=== PATIENT | male | born 1975 | race Caucasian/White ===

== ENCOUNTER 2024-04-07 11:13 | Day surgery (SDC) | payer SELFPAY ==
[2024-04-07] VITALS (12 sets, daily range): BP systolic 132–155; BP diastolic 90–104; PULSE 65–106; RESP 16–18; TEMP 36.2–37.1; O2SAT 89–99; BMI 28.5
[2024-04-07] MEDS: Lactated Ringers 1,000 ML 15 ML IV (12:04)
--- NOTE | 2024-04-07 12:14 | PRE.ANES_ITS ---
ASA Classification* ASA Classification ASA Classification: 2 Assessment & Plan Anesthesia* Anesthesia Assessment Anesthesia Assessment: Discussed sedation and/or anesthesia options, risks, benefits, and alternatives with patient/parents/legal guardian/POA. Questions invited. The patient/parents/legal guardian/POA seems to understand and agrees to proceed with anesthesia plan. Reviewed the physical assessment, medical history, allergy history and patient home medications list prior to surgery/procedure/anesthetic and documented any changes. Performed airway and anesthesia risk assessments. 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 When Was Last Pacemaker Check QUESTION #4 FULL TEXT: You/Your Family Experience fever (hyperthermia) with Anesthesia Last Oral Intake Last Oral intake: Last Oral Intake NPO since 08:30 04/07/24 11:40 Meds taken in AM with sips of No 04/07/24 11:40 water? Meds patient instructed to take am of surgery PONV PONV - harp action assembler: PONV - harp action assembler Female No 03/31/24 11:33 HX of Motion Sickness Yes 03/31/24 11:33 HX of N/V After Surgery No 03/31/24 11:33 Non-Smoker No 03/31/24 11:33 Duration of Surgery greater Yes 03/31/24 11:33 than 60 minutes Number of Risk Factors 2 03/31/24 11:33 PONV Score Moderate Risk 03/31/24 11:33 Height & Weight Height & Weight: Anesthesia: Height & Weight Height 6 ft 04/07/24 11:40 Weight: 95.6 kg 04/07/24 11:40 Body Mass Index (BMI) 28.5 04/07/24 11:40 Respiratory Assessment Respiratory Assessment - harp action assembler: Respiratory Tract Infection Hx - harp action assembler Hx Respiratory Tract Infection No 03/31/24 11:33 STOP Sleep Apnea STOP Sleep Apnea - harp action assembler: STOP Sleep Apnea - harp action assembler Hx Hypertension No 03/31/24 11:33 Hx Sleep Apnea No 03/31/24 11:33 CPAP BIPAP Do you snore loudly (louder No 03/31/24 11:33 than talking or can be heard Do you often feel tired/ No 03/31/24 11:33 fatigued/ sleepy during daytime? Has anyone observed you stop No 03/31/24 11:33 breathing during sleep? STOP Results Negative 03/31/24 11:33 QUESTION #5 FULL TEXT : Do you snore loudly (louder than talking or can be heard through closed doors)? 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 Specify any problems Hx of Preganancy in last 3 N/A 03/31/24 11:33 Months Nurse Filling Out Transfusion DSCHRIBER 03/31/24 11:33 & Questions: Date: 03/31/24 03/31/24 11:33 Time: 11:34 03/31/24 11:33 Patient unable to answer at this time (ie. confused, unrespo /Reproduction History /Reproductive History - harp action assembler: /Reproductive Hx- harp action assembler Hx Now No 03/31/24 11:33 Gestational Age (in weeks): EDC: Hx Hx Para Hx Section SAB No 03/31/24 11:33 Active Medications Active Medications: Current Medications Generic Name Dose Route Start Last Admin Trade Name Freq PRN Reason Stop Dose Admin Cefazolin Sodium 2 gm/ N/A 20 mls @ 400 mls/hr 04/07/24 13:30 IV 04/07/24 13:32 PREOP ONE Lactated Ringer's 1,000 mls @ 15 mls/hr 04/07/24 11:30 04/07/24 12:04 IV 04/13/24 00:49 15 mls/hr .Q48H ELIANA Administration Protocol [facility] Medical History Wears glasses Wears dentures Arthritis Chewing tobacco use Hx of fracture of leg Home Medications ?Medication ?Instructions ?Recorded ?Last Taken ?Type NK 03/31/24 Unknown History Allergy/AdvReac Type Severity Reaction Status Date / Time No Known Allergies Allergy Verified 03/31/24 11:31 Social History Smoking Status: Current every day smoker tobacco type: smokeless tobacco Review of Systems (Anesthesia) ROS Narrative System reviewed and no additional complaints, except as documented.
[2024-04-07] MEDS: Epinephrine (1 mg/ml) 1 MG/ML VIAL (12:38)
[2024-04-07] MEDS: Cefazolin 2 GM in Syringe IV (12:53)
--- NOTE | 2024-04-07 14:31 | PCM.OPRPT ---
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 Fire Prevention Inspector: Renetta Etienne PA-C Tasks completed by environmental assistant: Opening & closing and Implanting device Additional boiler assistant operator?: No Type of Anesthesia: General/Regional RN Documented Start/Stop Times: Operation Date: 04/07/24 13:30 Case Time Into Pre-Op 04/07/24 11:27 Out of Pre-Op 04/07/24 12:52 Anesthesia Start 04/07/24 12:53 Into Room 04/07/24 12:53 Procedure Start 04/07/24 13:14 Procedure Start Time: 13:14 Procedure Stop Time: 14:27 Select all DRAINS/GRAFTS/IMPLANTS that apply: None (See dictated op report below) Estimated Blood Loss: 10 cc Fluids Replaced: Per anesthesia record Specimen collected: No Description of surgery: Implants: Arthrex self punching 4.75 mm bio composite swivel lock anchors x 2 Patient was identified in the preoperative holding area by name, medical record number, and date of . The operative extremity was marked. All questions were answered patient satisfaction. Interscalene block was administered by anesthesia staff. At time of his procedure, he was brought to the operative suite and positioned supine on a standard operating table. General anesthesia was induced and endotracheal tube placed. Patient was then positioned in the lateral decubitus position with the left side up. He was held in place with a beanbag. An axillary roll was placed. All bony prominences were well-padded. We spun the bed 45 degrees. We prepped and draped the left upper extremity in normal, sterile orthopedic fashion. We performed a timeout confirming the side, site, and operation be performed. No concerns were voiced and we elected to proceed with surgery. 2 g Ancef was administered IV prior to incision by anesthesia staff. Standard posterior portal was established 2 fingerbreadths inferior medial to the posterior lateral border of the scapular spine. Blunt tipped trocar was then used to enter the glenohumeral joint. Joint was filled with normal saline with epinephrine. Arthroscope was introduced. Diagnostic arthroscopy was commenced. Glenohumeral cartilage was pristine. Synovitis was noted in the rotator interval. Standard interval portal was established. Internal rotation revealed a split tear of the upper third of the subscapularis. This was debrided with the arthroscopic shaver. A fiber link suture was then placed along the inferior margin of the tear and then through the eyelet of a self punching swivel lock anchor. Swivel lock anchor was placed along the left medial aspect of the lesser tuberosity with excellent compression across the split interstitial tear. Sutures were cut flush with the anchor. The articular side of the supraspinatus was noted to be torn and debrided with the arthroscopic shaver. Biceps tendon was normal. Mild fraying at the superior labrum otherwise normal labrum. The arthroscope was then removed. I reentered the shoulder in the subacromial space. Extensive bursitis was noted. Standard lateral portal was established. Flexible cannula placed. Bursitis was debrided with the arthroscopic shaver. The undersurface of the acromion was skeletonized with cautery and appeared within normal limits. The supraspinatus was then debrided along the tear. A tear approximately 1 x 1 cm was noted. The footprint was debrided with cautery. I elected to proceed with single anchor repair. An inverted mattress fiber tape suture was placed with cysts scorpion suture passer. A fiber link suture was placed medial to this in the central portion for a modified Nadry-Chester type fixation. Sutures were passed through the eyelet of a self punching bio composite swivel lock anchor. [place] was placed along the lateral margin of the footprint. There is excellent purchase of the anchor as well as reapproximation of [place] tendon tissue to its footprint. There is a small dogear posteriorly which was reduced with the self locking mechanism of the swivel lock anchor. The supraspinatus was anatomically reduced following dogear fixation. Sutures were cut flush with the anchor. The subacromial space was thoroughly lavaged with saline. Arthroscopic instruments were removed. Portal sites were closed in interrupted [id number] fashion with 3-0 nylon suture. Bulky sterile compression dressing was applied. Patient tolerated the procedure well without apparent complication. He was extubated in the operative suite and awakened. He was transferred to his gurney and subsequently PACU in stable condition. Need for skilled boiler assistant operator: Renetta Etienne PA-C was critical to the outcome of the case. During the course of the procedure the physician boiler assistant operator played a vital role. Her intimate knowledge of my steps in the procedure aided in safe and expedient completion of the procedure. The PA played a vital role in positioning particularly in obtaining the appropriate positioning. The PA was also vital in the retraction of soft tissues during the exposure and protecting vital structures. The PA was also vital and obtaining tendon reduction and assisting with hardware placement. She also played a vital role in closure and sling application with my direct supervision. Surgical Findings: Full-thickness supraspinatus tear. Interstitial tear of subscapularis. Complications Complications: No Admit VTE Documentation VTE Present on Admission: No VTE Mechan Device Prophylaxis: SCD's VTE Pharm Prophylaxis ordered?: Yes
--- NOTE | 2024-04-07 14:41 | PCM.POST.ANE ---
Anesthesia: Postop Eval I Current Vital Signs Temperature: 98.8 F Pulse Rate: 90 Blood Pressure: 148/99 Respiratory Rate: 16 Pulse Ox: 98 Oxygen Delivery Method: Room Air Assessment Airway patent: Yes Spontaneous unlabored respirations: Yes Mental status: Awake and Calm nausea: No Vomiting: No Anesthesia Complication: No Fluid Hydration Crystalloid volume administer (ml): 900 Total IV fluid infused: 900 Progress Note Anesthesia document: Postop Eval 1 completed: Yes
[2024-04-07] MEDS: Ketorolac 15 MG/ML Vial IV (15:32)
[2024-04-07] MEDS: oxyCODONE 5 MG Tablet 10 MG PO (16:07)
--- NOTE | 2024-04-07 17:58 | POSTOPAN2_ITS ---
Anesthesia Postop Eval I Sum Postop Eval Completion status Anesthesia document: Postop Eval 1 completed: Yes Anesthesia Postop Eval I Summary Anesthesia Postop Eval I Summary: Anesthesia Postop Eval I: Assessment Summary Airway patent Yes 04/07/24 14:42 CHARCOAL BURNER BEEHIVE KILN.MDOT Spontaneous unlabored Yes 04/07/24 14:42 CHARCOAL BURNER BEEHIVE KILN.MDOT respirations Mental status Awake,Calm 04/07/24 14:42 CHARCOAL BURNER BEEHIVE KILN.MDOT nausea No 04/07/24 14:42 CHARCOAL BURNER BEEHIVE KILN.MDOT Vomiting No 04/07/24 14:42 CHARCOAL BURNER BEEHIVE KILN.MDOT Anesthesia Postop Eval I: Fluid Summary Crystalloid volume administer 900 04/07/24 14:42 CHARCOAL BURNER BEEHIVE KILN.MDOT (ml) Colloids volume administered ( ml) Blood Product volume administered (ml) Total IV fluid infused 900 04/07/24 14:42 CHARCOAL BURNER BEEHIVE KILN.MDOT Anesthesia Postop Eval I: Summary Notes Anesthesia Complication No 04/07/24 14:42 CHARCOAL BURNER BEEHIVE KILN.MDOT Anesthesia Complication Comment: Post-operative progress note Anesthesia: Postop Eval II Evaluation Mental status: Awake Pain Level: 0 nausea: No Vomiting: No
--- NOTE | 2024-04-07 17:58 | PCM.POSTANE2 ---
Anesthesia Postop Eval I Sum Postop Eval Completion status Anesthesia document: Postop Eval 1 completed: Yes Anesthesia Postop Eval I Summary Anesthesia Postop Eval I Summary: Anesthesia Postop Eval I: Assessment Summary Airway patent Yes 04/07/24 14:42 PHOTOGRAPHER MOTION PICTURE.MDOT Spontaneous unlabored Yes 04/07/24 14:42 PHOTOGRAPHER MOTION PICTURE.MDOT respirations Mental status Awake,Calm 04/07/24 14:42 PHOTOGRAPHER MOTION PICTURE.MDOT nausea No 04/07/24 14:42 PHOTOGRAPHER MOTION PICTURE.MDOT Vomiting No 04/07/24 14:42 PHOTOGRAPHER MOTION PICTURE.MDOT Anesthesia Postop Eval I: Fluid Summary Crystalloid volume administer 900 04/07/24 14:42 PHOTOGRAPHER MOTION PICTURE.MDOT (ml) Colloids volume administered ( ml) Blood Product volume administered (ml) Total IV fluid infused 900 04/07/24 14:42 PHOTOGRAPHER MOTION PICTURE.MDOT Anesthesia Postop Eval I: Summary Notes Anesthesia Complication No 04/07/24 14:42 PHOTOGRAPHER MOTION PICTURE.MDOT Anesthesia Complication Comment: Post-operative progress note Anesthesia: Postop Eval II Evaluation Mental status: Awake Pain Level: 0 nausea: No Vomiting: No
== END 2024-04-07 17:12 | disposition home or self-care (01) ==
LOC: SDC 11:17 → AC 11:18
PROVIDERS: Referring Provider Student in an Organized Health Care Education/Training Program; Visit Provider Student in an Organized Health Care Education/Training Program
PROC: (CPT 29827; principal; 2024-04-07 13:10)
DX: S46.012A Strain of muscle(s) and tendon(s) of the rotator cuff of left shoulder, initial encounter (principal); X58.XXXA Exposure to other specified factors, initial encounter; Y93.64 Activity, baseball; M75.52 Bursitis of left shoulder; M19.012 Primary osteoarthritis, left shoulder; E66.3 Overweight; Z68.27 Body mass index [BMI] 27.0-27.9, adult; Z71.3 Dietary counseling and surveillance
CPT/HCPCS: 29827; 64415; A4216; J2405